=== PATIENT | female | born 1970 | race Hispanic/Latino ===

== ENCOUNTER 2019-01-23 22:02 | Emergency (ER) | payer OTHER | END 2019-01-23 23:06 | disposition home or self-care (01) | LOC: EDH 22:02 | DX: G89.29 Other chronic pain (principal); M25.511 Pain in right shoulder; E11.9 Type 2 diabetes mellitus without complications; E07.9 Disorder of thyroid, unspecified; Z98.890 Other specified postprocedural states | CPT/HCPCS: 73030 ==